=== PATIENT | male | born 1960 | race Caucasian/White ===

== ENCOUNTER 2016-11-14 08:00 | Emergency (ER) | payer MEDICAID ==
[2016-11-14] MEDS ORDERED: INDOMETHACIN 25 MG CAP PO ONE (08:08)
[2016-11-14] MEDS ORDERED: predniSONE 20 MG TAB PO ONE (08:08)
[2016-11-14] MEDS ORDERED: COLCHICINE 0.6 MG CAP/TAB PO ONE (08:08)
[2016-11-14 08:11] VITALS: RESP 18; TEMP 98.4
--- NOTE | 2016-11-14 08:13 | EDPHY ---
H & P Time Seen by Provider: 11/14/16 08:08 HPI/ROS: CHIEF COMPLAINT: Left ankle pain HISTORY OF PRESENT ILLNESS: The patient is a 56-year-old man who comes from the homeless retirement complaining of left ankle pain. He has a history of gout as well as chronic back pain and sciatica. He states that a a month ago he was taken off all of his medications after having an allergic reaction. This included allopurinol. Over the last week or so he has had increasing pain in mild swelling of his left ankle. It is similar to previous gout attacks. He is here requesting pain medication. He also has low back pain and has spinal fusion planned for December. He states that the combination of his chronic sciatica with the ankle pain this making it difficult for him to walk. He does use a walker. No fevers. No trauma. REVIEW OF SYSTEMS: Constitutional: denies: chills, fever, recent illness, recent injury EENTM: denies: blurred vision, double vision, nose congestion Respiratory: denies: cough, shortness of breath Cardiac: denies: chest pain, irregular heart rate, lightheadedness, palpitations Gastrointestinal/Abdominal: denies: abdominal pain, diarrhea, nausea, vomiting, blood streaked stools Genitourinary: denies: dysuria, frequency, hematuria, pain Musculoskeletal: See HPI Skin: denies: lesions, rash, jaundice, bruising Neurological: denies: headache, numbness, paresthesia, tingling, dizziness, weakness Hematologic/Lymphatic: denies: blood clots, easy bleeding, easy bruising Immunologic/allergic: denies: HIV/AIDS, transplant EXAM: GENERAL: Well-appearing, well-nourished and in no acute distress. HEAD: Atraumatic, normocephalic. EYES: Pupils equal round and reactive to light, extraocular movements intact, sclera anicteric, conjunctiva are normal. ENT: TMs normal, nares patent, oropharynx clear without exudates. Moist mucous membranes. NECK: Normal range of motion, supple without lymphadenopathy or JVD. LUNGS: Breath sounds clear to auscultation bilaterally and equal. No wheezes rales or rhonchi. HEART: Regular rate and rhythm without murmurs, rubs or gallops. ABDOMEN: Soft, nontender, normoactive bowel sounds. No guarding, no rebound. No masses appreciated. BACK: No CVA tenderness, no spinal tenderness, step-offs or deformities EXTREMITIES: Mild swelling and warmth to left ankle. Normal strength and sensation. No visible trauma. NEUROLOGICAL: Cranial nerves II through XII grossly intact. Normal speech, normal gait. 5/5 strength, normal movement in all extremities, normal sensation PSYCH: Normal mood, normal affect. SKIN: Warm, dry, normal turgor, no visible rashes or lesions. Source: Patient, EMS, Old records Exam Limitations: No limitations - Personal History Tetanus Vaccine Date: less than a year ago - Medical/Surgical History Hx Asthma: No Hx Chronic Respiratory Disease: No Hx Diabetes: No Hx Cardiac Disease: No Hx Renal Disease: No Hx Cirrhosis: No Hx Alcoholism: No Hx HIV/AIDS: No Hx Splenectomy or Spleen Trauma: No Other PMH: staph infection s/p L knee surgey (5 operations total)-2009. HTN. diverticulitis, colostomy and reversal. appy. gout-pending total hip replacements bilateral; - Family History Significant Family History: Hypertension - Social History Smoking Status: Never smoked Alcohol Use: Sober Constitutional: Initial Vital Signs Temperature (C) 36.9 C 11/14/16 08:05 Heart Rate 86 11/14/16 08:05 Respiratory Rate 18 11/14/16 08:05 Blood Pressure 202/109 H 11/14/16 08:05 O2 Sat (%) 96 11/14/16 08:05 O2 Delivery Mode Room Air Allergies/Adverse Reactions: TAMICA Inhibitors Allergy (Intermediate, Verified 08/04/16 00:04) Swelling/neck,face,throat morphine Allergy (Intermediate, Verified 08/03/16 13:51) lips swell Home Medications: Medication Instructions Recorded Ibuprofen [Motrin (*)] 800 mg PO TID 08/03/16 tiZANidine HCL [Zanaflex] 4 mg PO QID@08,12,16,20 08/03/16 EPINEPHRINE [EPIPEN] 0.3 mg IJ ONCE #0 08/04/16 predniSONE 20 mg PO DAILY #4 tablet 08/04/16 Colchicine 0.6 mg PO BID #30 capsule 11/14/16 Indomethacin [INDOMETHACIN] 75 mg PO BID #30 capsule.er 11/14/16 methylPREDNISolone [Medrol Dose 1 each PO AD #1 ea 11/14/16 Elliot] Medical Decision Making ED Course/Re-evaluation: Patient does not wish to have ultrasound or x-rays done. He is confident this is a gout flare. I will treat him with cultures seen in indomethacin. He is also requesting steroids for his sciatica pain. He will follow up with his spine surgeon. He is happy with this plan and declines further workup or testing at this time. Differential Diagnosis: Partial list of the Differential diagnosis considered include but were not limited to; gout, ankle sprain, DVT, fracture and although unlikely based on the history and physical exam, I also considered infection, cellulitis. I discussed these differential diagnoses and the plan with the patient as well as the usual and expected course. The patient understands that the diagnosis is provisional and that in medicine we are not always correct and that further workup is often warranted. Usual and customary warnings were given. All of the patient's questions were answered. The patient was instructed to return to the emergency department should the symptoms at all worsen or return, otherwise to followup with the physician as we discussed. - Data Points Medications Given: Discontinued Medications Colchicine (Colchicine) 0.6 mg PO EDNOW ONE Stop: 11/14/16 08:09 Last Admin: 11/14/16 09:20 Dose: 0.6 mg Indomethacin (Indocin) 50 mg PO EDNOW ONE Stop: 11/14/16 08:09 Last Admin: 11/14/16 08:18 Dose: 50 mg Prednisone (Prednisone) 60 mg PO EDNOW ONE Stop: 11/14/16 08:09 Last Admin: 11/14/16 08:18 Dose: 60 mg Departure - Departure Disposition: Home, Routine, Self-Care Clinical Impression: Gout Qualifiers: Gout site: ankle Gout etiology: unspecified cause Laterality: left Chronicity: acute Qualified Code(s): M10.9 - Gout, unspecified Sciatica Qualifiers: Laterality: left Qualified Code(s): M54.32 - Sciatica, left side Condition: Fair Instructions: Gout (ED) Referrals: NONE *PRIMARY CARE P,. [Primary Care Provider] - As per Instructions Jerry Florentino DO [Doctor of Osteopathy] - As per Instructions Prescriptions: Colchicine 0.6 mg PO BID #30 capsule Indomethacin [INDOMETHACIN] 75 mg PO BID #30 capsule.er methylPREDNISolone [Medrol Dose Elliot] 1 each PO AD #1 ea
[2016-11-14 09:43] VITALS: BP 200/134; PULSE 73; O2SAT 97
== END 2016-11-14 09:42 | disposition home or self-care (01) ==
LOC: EDUNIT#
DX: M10.9 Gout, unspecified (principal); M54.32 Sciatica, left side; I10 Essential (primary) hypertension

== ENCOUNTER 2017-05-05 10:01 | Emergency (ER) | payer MEDICAID ==
[2017-05-05 10:17] VITALS: TEMP 97.7
--- NOTE | 2017-05-05 10:48 | EDPHY ---
H & P Stated Complaint: Possible gout flare up L foot Time Seen by Provider: 05/05/17 10:23 HPI/ROS: CHIEF COMPLAINT: "My gout is flared up" HISTORY OF PRESENT ILLNESS: 57-year-old male history gout typically manifest at the left 1st MTP complaining of 2 days of pain at same location. Atraumatic. No ankle pain. No paresthesia. No trauma. No fever or chills. No flu-like symptoms. Achieved normal relief with colchicine and Indocin. PRIMARY CARE PROVIDER: Vreonique Russ REVIEW OF SYSTEMS: A ten point review of systems was performed and is negative with the exception of the items mentioned in the HPI PHYSICAL EXAM (Prior to examination, patient consented to physical exam, hands were washed and my usual and customary physical exam procedures followed) 1) GENERAL: Well-developed, well-nourished, alert and oriented. Appears to be in no acute distress. 2) HEAD: Normocephalic 3) HEENT: Pupils equal, round, reactive to light bilaterally. 4) LUNGS: Breathing comfortably. 5) MUSCULOSKELETAL: Tender to palpation left 1st MTP medial aspect. No lymphangitic streaking. No cellulitic appearance. proximal tibia and fibula nontender .5th MT nontender negative Hurtado test, compartments soft 6) SKIN: tender to palpation left 1st MTP. 7) VASCULAR: DP,PT pulses and cap refill present and brisk DIFFERENTIAL DIAGNOSIS: in no particular order including but not limited to fracture, sprain, DVT,compartment syndrome, gout flare - Personal History Current Tetanus Diphtheria and Acellular Pertussis (TDAP): Yes Tetanus Vaccine Date: less than a year ago - Medical/Surgical History Hx Asthma: No Hx Chronic Respiratory Disease: No Hx Diabetes: No Hx Cardiac Disease: No Hx Renal Disease: No Hx Cirrhosis: No Hx Alcoholism: No Hx HIV/AIDS: No Hx Splenectomy or Spleen Trauma: No Other PMH: staph infection s/p L knee surgey (5 operations total)-2009. back surgery 12/2016. HTN. diverticulitis, colostomy and reversal. appy. gout. gout-pending total hip replacements bilateral; - Social History Smoking Status: Never smoked Constitutional: Initial Vital Signs Temperature (C) 36.5 C 05/05/17 10:10 Heart Rate 93 08/07/17 10:10 Respiratory Rate 18 05/05/17 10:10 Blood Pressure 161/108 H 05/05/17 10:10 O2 Sat (%) 99 05/05/17 10:10 O2 Delivery Mode Room Air Allergies/Adverse Reactions: TAMICA Inhibitors Allergy (Severe, Verified 05/05/17 10:17) Swelling/neck,face,throat morphine Allergy (Intermediate, Verified 05/05/17 10:17) lips swell Home Medications: Medication Instructions Recorded Allopurinol [Allopurinol 300 MG 300 mg PO DAILY 05/05/17 (RX)] Amlodipine Besylate [Norvasc] 5 mg PO 05/05/17 Colchicine 0.6 mg PO BID #30 capsule 05/05/17 Cyclobenzaprine [Cyclobenzaprine 05/05/17 HCl] Indomethacin [Indocin 25 mg (*)] 50 mg PO TID #15 cap 05/05/17 Medical Decision Making ED Course/Re-evaluation: Old medical records reviewed in this patient. Notes usual relief with colchicine and Indocin which will be prescribed him. We discussed normal and appropriate dosing of his medications. Doubt DVT. Doubt septic arthritis. Doubt compartment syndrome. Usual and customary discharge precautions and instructions provided Departure - Departure Disposition: Home, Routine, Self-Care Clinical Impression: Gout attack Qualifiers: Gout site: toe Gout etiology: unspecified cause Laterality: left Qualified Code (s): M10.9 - Gout, unspecified Condition: Good Instructions: Gout (ED) Additional Instructions: Return to the emergency department if you develop new or worsening symptoms, if you are unable to bear weight, develop redness or any other symptoms that concern you Referrals: ALEXIS FLORES [Other] - 1-2 days without fail Prescriptions: Colchicine 0.6 mg PO BID #30 capsule Indomethacin [Indocin 25 mg (*)] 50 mg PO TID #15 cap
[2017-05-05] MEDS: INDOMETHACIN 25 MG CAP PO ONE (11:33)
[2017-05-05] MEDS: COLCHICINE 0.6 MG CAP/TAB PO ONE (11:33)
[2017-05-05] MEDS ORDERED: INDOMETHACIN 25 MG CAP ONE (11:35)
[2017-05-05 11:43] VITALS: BP 155/111; PULSE 88; RESP 16; O2SAT 98
== END 2017-05-05 11:42 | disposition home or self-care (01) ==
DX: M10.9 Gout, unspecified (principal); I10 Essential (primary) hypertension

== ENCOUNTER → 2018-12-16 | Outpatient (CLI) | payer MEDICAID ==
--- NOTE | 2018-12-16 11:28 | NOWCEV ---
[facility] EVALUATION AND LETTER OF JUSTIFICATION Patient Name: KEN PROCTOR Physician: NADYA Flores Eval Date: 12/16/18 Therapist: Mary Grace Hernandez PT,MSPT Date of : 1960 MR#: [id number] Contact: Ken Proctor Subscriber: KEN PROCTOR Primary Ins: [employer] Subscriber #: [id number] EVALUATION FINDINGS Medical history - Ken is a 58y/o male with PMH significant for severe lumbar stenosis with L1-4 fusion, with continued radicular symptoms into his L>R LE, L TKA with 5 revisions and h/o infection, B carpal tunnel syndrome with releases at B wrist and elbows, OA in C5-C7, and 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 This has led to a severe decline in functional mobility and a significant fall history. He reports that his pain is regularly a 7/10 when performing functional mobility and gait. Ken is being referred to this clinic by his doctor to have recommendations made for the most medically appropriate PWC to allow Ken to safely and consistently access the community, without placing him at risk for fall. Functional Mobility - Ken's functional mobility is severely limited. He currently utilizes a rollator walker for all gait and access to MRADLs in the home and community. When he walks, Ken has a severely flexed posture where he places significant weight through his UEs, which causes exacerbation of his carpal tunnel. He is flexed at the hips and knees, has a wide AMAIRANI and his hips are externally rotated. He can typically only ambulate 30yards prior to requiring a seated break. He has a (+) fall history when ambulating with his rollator walker in the community. He reports his legs unexpectedly give out, likely due to neurologic weakness from his back and hips, and he is unable to catch himself on his walker. This severely limits his ability to access medical appointments, as well as to perform activities such as grocery shopping. To complete sit to stand transitions, Ken leans to his R as he is unable to hinge forward from the hips due to his OA. He pushes up using B UEs, and turns and faces the surface he stands from to complete the stand and stabilize his balance with this UEs. To transfer he walks both of his hands onto the next stable surface prior to taking small steps to transition his body to sit. He required min A to complete bed mobility and is unable to lye supine due to severe limitations in his hips and back. Motor involvement - Ken has significant limitations due to his severe stenosis and OA, as well as carpal tunnel. Due to his hip OA, Ken's hip flexibility is limited. Passive L hip flexion is 64degrees, passive R hip flexion is 68degrees , passive L hip extension is -18degrees, and passive R hip extension is - 25degrees. Phil hips are externally rotated and he is not able to be passively brought to 0degrees internal rotation. He has severe pain with all PROM. MMT is as follows: DF L: 3/5, R: 4-/5, knee ext L: 4/5, R: 4-/5, hip flexion B: 3-/5, shoulder abduction B: 3+to 4-/5 and painful into neck and shoulders. He has swelling in B wrists from carpal tunnel releases. When standing at his walker, his trunk is flexed 40degrees forward from the hips ( when he attempts to stand straight) due to his B hip OA, and spinal fusion. Posture - Ken sits with a posterior pelvic tilt, kyphotic posture, forward head and rounded shoulders. He sits on the edge of the treatment mat with his hips at an open angle, due to limited ROM. He is unable to scoot back on the mat without leaning back and without severe pain. His LEs are abducted and externally rotated, to allow his hips to remain in an open pack position to limit joint compression. Skin Sensation - Ken has impairments in the sensation in B forefoot. He does not report h/o skin breakdown. Endurance - Ken's endurance is severely limited. He is able to walk about 30yards with his rollator walker prior to having to take a seated break on the device due to pain and risk of his LEs giving out and falling. He reports that it can take anywhere from 20min to most of the day for his pain to decrease to tolerable level after walking. ADLs - Ken completes ADLs such as dressing, bathing and self care tasks at a modified independent level with adaptations. He has assistance once a week for activities such as cleaning and meal prep. Cognitive/Social - Ken live alone in a single story, handicap accessible apartment with a level entry. 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 He utilizes public transit to access medical appointments and the community for activities such as grocery shopping, but his access is severely limited due to his poor ability to ambulate and high risk of falling in the community. Current wheelchair - Ken does not currently own a wheelchair. MEDICAL and FUNCTIONAL NEED/OBJECTIVES Needed to procure a PWC to provide Ken with safe, consistent, and independent access to the community in order to attend medical appointments and perform activities such as grocery shopping. EQUIPMENT RECOMMENDATIONS AND JUSTIFICATIONS The following recommendations are believed to be the most cost effective way to meet the patients medical and functional needs. * Group 2 power base with captain seating: Needed to provide Ken with safe, consistent and independent access to the community and to attend medical appointments. Ken is not able to ambulate at a community level even with a walker, and has had multiple falls where his legs give out when attempting to ambulate community distances. He is not able to self propel a MWC, even a light weight or ultra light weight model at a community level due to his severe carpal tunnel and limited UE strength. Attempting to self propel a MWC community distances would exacerbation of his carpal tunnel. Ken is not able to utilize a scooter, as he has to sit with an open his angle due to his severe OA in B hips, where he can only flex to 68deg in his R hip and 64deg in his L hip. The seating system on a scooter is not adjustable and is unable to accommodate Ken's limitations. Therefore he would be unable to utilize a scooter to access the community. A group 2 power base with captain seating has the ability to accommodate Ken's open hip angle in sitting and the ability to provide him with safe and consistent community access without placing him at risk for fall or further exacerbating his carpal tunnel. * Height adjustable arm rests: The elevated height of the arm rests is necessary to allow Ken to push off with his arms to stand and safely complete transfers. * Flip back foot plate: Needed to provide Ken with LE support to allow for appropriate pressure distribution when in his chair was well as to offload his hips which are severely painful due to his OA. Flip back is needed so that the foot plate can be moved easily out of the way without requiring Ken to lean forward, which he is unable to do because of his hip angle. * Swing away joystick mount: Needed to allow joystick to be pushed out of the way so that Ken can pull his chair closely up to surfaces, as he has difficulty leaning forward to reach due to severe OA and ROM limitations at his hips. Additionally needed so the joystick can be moved out of the way so that it does not interfere with transfers. * Transit tie downs: Needed to secure Ken's chair as he utilizes public transit to access medical appointments. These recommendations are based on the likelihood that Ken will require the use of a wheelchair for all community mobility, and likely progress to requiring his PWC for household mobility, for the rest of his life. If you have any questions or concerns regarding the stated recommendations, please feel free to contact the therapist at . Thank you for your cooperation in obtaining the necessary equipment for this patient. GLENNY Velarde
== END ==
DX: M16.0 Bilateral primary osteoarthritis of hip (principal); G89.29 Other chronic pain; M17.11 Unilateral primary osteoarthritis, right knee; M54.5 Low back pain
CPT/HCPCS: 97162-GP